=== PATIENT | female | born 1960 | race Caucasian/White ===

== ENCOUNTER 2017-04-30 09:37 | Emergency (ER) | payer MEDICAID ==
[~2017-04-30] VITALS: Ht 152.4 cm; Wt 65.0 kg
[~2017-04-30 09:37] MED LIST: ALPR1TAB2 PO; ATOR20TA9 PO; DOXE100C PO; NITR100C56 PO; PHEN100C PO
[2017-04-30] MEDS ORDERED: SODIUM CHLORIDE FLUSH 10ML SYR IVF ONE (11:00)
[2017-04-30] MEDS ORDERED: SODIUM CHLORIDE 0.9% 1,000ML IVBOLUS ONE (11:00)
[2017-04-30 11:01] LABS: HEMATOCRIT 47.2 % (34.6-47.8); HEMOGLOBIN 16.3 g/dL (11.7-16.4); WHITE BLOOD COUNT 9.3 x10^3/uL (3.4-10)
[2017-04-30 11:15] LABS: BLOOD UREA NITROGEN 9 mg/dL (7-18)
[2017-04-30 11:19] LABS: IS PT STATUS REG ER OR PRE ER? YES
[2017-04-30 13:16] VITALS: BP 116/69
== END 2017-04-30 13:39 | disposition home or self-care (01) ==
LOC: ED 12:36
DX: R07.89 Other chest pain (principal); K21.9 Gastro-esophageal reflux disease without esophagitis
CPT/HCPCS: 36415; 71010; 80048; 82040; 84484; 85025; 85610; 85730; 93005; 99285

== ENCOUNTER 2018-05-02 22:02 | Emergency (ER) | payer MEDICAID ==
[~2018-05-02] VITALS: Ht 152.4 cm; Wt 63.2 kg
[2018-05-02] MEDS ORDERED: LIDOCAINE-MPF 2%, 2ML ONE (22:25)
[2018-05-02] MEDS ORDERED: PROPOFOL 10 MG/ML, 20ML ONE (22:25)
[2018-05-02] MEDS ORDERED: PROPOFOL 10 MG/ML, 20ML IVPush ONE ×2 (22:30→23:30)
[2018-05-02 23:44] VITALS: BP 90/47
== END 2018-05-02 23:49 | disposition home or self-care (01) ==
LOC: ED 23:29
DX: N76.0 Acute vaginitis (principal); K21.9 Gastro-esophageal reflux disease without esophagitis; Z90.49 Acquired absence of other specified parts of digestive tract; Z88.6 Allergy status to analgesic agent; Z88.0 Allergy status to penicillin; Z88.5 Allergy status to narcotic agent; Z87.891 Personal history of nicotine dependence; Z90.710 Acquired absence of both cervix and uterus; Z79.899 Other long term (current) drug therapy
CPT/HCPCS: 56405

== ENCOUNTER 2018-10-26 16:40 | Inpatient (IN) | payer MEDICAID, OTHER ==
[~2018-10-26] VITALS: Ht 152.4 cm; Wt 68.6 kg
[~2018-10-26 16:40] MED LIST changes: +ATOR20TA37 PO; -ATOR20TA9 PO
--- NOTE | 2018-10-26 17:20 | NUR ---
PT REPORTING COELLO FOR 3 DAYS OFF AND ON. RIGHT THIGH PAIN AND LEG NUMBNESS. PT HYPERTENSIVE, DENIES HISTORY OF HTN. ALERT AND ORIENTED. NO FOCAL DEFICIT. ASSISTED INTO [facility] AND ASKED TO CHANGE INTO GOWN.
[2018-10-26 17:24] LABS: BASOPHILS # (AUTO) 0.09 x10^3/uL (0-0.1); BASOPHILS % (AUTO) 1 % (0-1); EOSINOPHILS # (AUTO) 0.23 x10^3/uL (0-0.4); EOSINOPHILS % (AUTO) 2 % (1-7); LYMPHOCYTES # (AUTO) 2.49 x10^3/uL (1-3.4); LYMPHOCYTES % (AUTO) 20 % (22-44); MD NO; MEAN CORPUSCULAR HEMOGLOBIN 34.4 pg (27.0-34.8); MEAN CORPUSCULAR HGB CONC 35.4 g/dL (32.4-35.8); MEAN CORPUSCULAR VOLUME 97.2 fL (80-100); MEAN PLATELET VOLUME 8.7 fL (7.4-10.4); MONOCYTES % (AUTO) 5 % (2-9); NEUTROPHILS # (AUTO) 9.22 x10^3/uL (1.8-6.8); NEUTROPHILS % (AUTO) 73 % (42-75); PLATELET COUNT 239 x10^3/uL (130-400)
[2018-10-26] MEDS ORDERED: LORA2TAB PO (17:28)
[2018-10-26 17:30] LABS: INTERNATIONAL NORMALIZED RATIO 0.95 (0.93-1.1)
[2018-10-26] MEDS ORDERED: SODIUM CHLORIDE 0.9% 1,000ML IVBOLUS ONE (18:30)
[2018-10-26] MEDS ORDERED: MORPHINE SULFATE 4 MG/ML, 1ML IVPush PRN (18:30)
[2018-10-26] MEDS ORDERED: ONDANSETRON 2MG/ML, 2ML ONE (18:30)
[2018-10-26] MEDS ORDERED: FENTANYL PF 100 MCG/2ML IVPush PRN (18:30)
[2018-10-26] MEDS ORDERED: ONDANSETRON 2MG/ML, 2ML IVPush ONE (18:30)
[2018-10-26] MEDS ORDERED: FENTANYL PF 100 MCG/2ML ONE (18:30)
--- NOTE | 2018-10-26 18:43 | NUR ---
20 G ESTABLISHED FOR CTA. MEDICATED PER ORDERS FOR COELLO. TO CT
[2018-10-26] MEDS ORDERED: OMNIPAQUE 350 MG/ML, 100ML BOTTLE ONE (19:08)
--- NOTE | 2018-10-26 19:31 | NUR ---
PAIN IMPROVED SINCE MEDICATED, 01/11. PAIN BEHIND RIGHT EYE. FLUIDS INFUSING. AWARE OF INTENT TO ADMIT
--- NOTE | 2018-10-26 20:58 | NUR ---
REPORT TO EVANGELIST ESCALANTE
--- NOTE | 2018-10-26 21:36 | NUR ---
RADHIKA ROSS AT BEDSIDE FOR ADMIT EVAL.
[2018-10-26] MEDS ORDERED: POLYETHYLENE GLYCOL 17 GM PACKET PO PRN (22:00)
[2018-10-26] MEDS ORDERED: ONDANSETRON 2MG/ML, 2ML IVPush PRN (22:00)
[2018-10-26] MEDS ORDERED: SENNA/DOCUSATE TABLET PO PRN (22:00)
[2018-10-26] MEDS ORDERED: LABETALOL 20 MG/4 ML IV PRN (22:00)
[2018-10-26] MEDS ORDERED: BISACODYL 10 MG SUPP PR PRN (22:00)
[2018-10-26] MEDS ORDERED: ENALAPRILAT 1.25 MG/ML, 2ML IV PRN (22:00)
[2018-10-26] MEDS ORDERED: DOCUSATE 100 MG CAPSULE PO PRN (22:00)
[2018-10-26] MEDS ORDERED: NICOTINE 21 MG/24 HR PATCH.TD24 TD ONE (22:00)
[2018-10-26] MEDS ORDERED: ONDANSETRON 4 MG TABLET PO PRN (22:00)
[2018-10-26] MEDS ORDERED: NICOTINE 21 MG/24 HR PATCH.TD24 ONE (22:31)
[2018-10-26 22:34] LABS: ALANINE AMINOTRANSFERASE 24 U/L (12-78); ALBUMIN 3.7 g/dL (3.4-5.0); ANION GAP 7 mmol/L (5-15); CHLORIDE 115 mmol/L (98-107)
[2018-10-26 22:36] LABS: ALKALINE PHOSPHATASE 76 U/L (45-117); CREATININE 0.86 mg/dL (0.55-1.02); TOTAL PROTEIN 6.5 g/dL (6.4-8.2)
[2018-10-26] MEDS ORDERED: DOXEPIN 100 MG CAPSULE PO PRN (23:00)
[2018-10-26 23:25] VITALS: BP 126/71
[2018-10-27] VITALS (8 sets, daily range): BP systolic 92–111; BP diastolic 60–75
[2018-10-27] MEDS: ACETAMINOPHEN 325 MG TABLET PO PRN ×2 (04:02→10:17)
[2018-10-27 04:35] LABS: MICROSCOPIC NOT IND
[2018-10-27 04:38] LABS: CULTURE INDICATED? NO
[2018-10-27] MEDS ORDERED: SODIUM CHLORIDE 0.9%, 500ML IVBOLUS ONE (05:30)
[2018-10-27] MEDS: LACTULOSE 10 GM/15 ML UDC PO SCH ×2 (08:09→21:00)
[2018-10-27 09:16] LABS: BASOPHILS # (AUTO) 0.05 x10^3/uL (0-0.1); BASOPHILS % (AUTO) 1 % (0-1); EOSINOPHILS # (AUTO) 0.24 x10^3/uL (0-0.4); EOSINOPHILS % (AUTO) 4 % (1-7); LYMPHOCYTES # (AUTO) 1.85 x10^3/uL (1-3.4); LYMPHOCYTES % (AUTO) 31 % (22-44); MD NO; MEAN CORPUSCULAR HEMOGLOBIN 33.6 pg (27.0-34.8); MEAN CORPUSCULAR HGB CONC 34.2 g/dL (32.4-35.8); MEAN CORPUSCULAR VOLUME 98.3 fL (80-100); MEAN PLATELET VOLUME 8.7 fL (7.4-10.4); MONOCYTES # (AUTO) 0.32 x10^3/uL (0.2-0.8); MONOCYTES % (AUTO) 5 % (2-9); NEUTROPHILS # (AUTO) 3.54 x10^3/uL (1.8-6.8); NEUTROPHILS % (AUTO) 59 % (42-75); PLATELET COUNT 208 x10^3/uL (130-400); RED BLOOD COUNT 4.61 x10^6/uL (3.82-5.3); RED CELL DISTRIBUTION WIDTH 13.1 % (9.6-15.2)
[2018-10-27 09:20] LABS: CHOL/HDL RATIO 3.7; LDL/HDL RATIO 2.3 (0.5-3.0)
[2018-10-27 13:12] LABS: AMPHETAMINE SCREEN, URINE Negative (Negative); BARBITURATE SCREEN, URINE Negative (Negative); BENZODIAZEPINE SCREEN, URINE Negative (Negative); CANNABINOID SCREEN, URINE Negative (Negative); COCAINE SCREEN, URINE Negative (Negative); METHADONE SCREEN, URINE Negative (Negative); OPIATE SCREEN, URINE Negative (Negative)
[2018-10-27] MEDS ORDERED: BUDESONIDE 0.5 MG/2 ML INHA INH SCH (21:00)
[2018-10-28 00:54] VITALS: BP 107/74
[2018-10-28 04:07] VITALS: BP 108/77
[2018-10-28 07:25] LABS: BASOPHILS # (AUTO) 0.07 x10^3/uL (0-0.1); BASOPHILS % (AUTO) 1 % (0-1); EOSINOPHILS # (AUTO) 0.24 x10^3/uL (0-0.4); EOSINOPHILS % (AUTO) 4 % (1-7); LYMPHOCYTES # (AUTO) 1.93 x10^3/uL (1-3.4); LYMPHOCYTES % (AUTO) 36 % (22-44); MD NO; MEAN CORPUSCULAR HGB CONC 34.6 g/dL (32.4-35.8); MEAN CORPUSCULAR VOLUME 98.3 fL (80-100); MONOCYTES % (AUTO) 6 % (2-9); NEUTROPHILS # (AUTO) 2.84 x10^3/uL (1.8-6.8); NEUTROPHILS % (AUTO) 53 % (42-75); PLATELET COUNT 199 x10^3/uL (130-400); RED BLOOD COUNT 4.75 x10^6/uL (3.82-5.3); RED CELL DISTRIBUTION WIDTH 13.3 % (9.6-15.2)
[2018-10-28 07:26] VITALS: BP 112/79
[2018-10-28 07:34] LABS: ANION GAP 7 mmol/L (5-15); CHLORIDE 112 mmol/L (98-107)
[2018-10-28 07:36] LABS: CREATININE 0.86 mg/dL (0.55-1.02)
[2018-10-28] MEDS: LACTULOSE 10 GM/15 ML UDC PO SCH (08:41)
[2018-10-28] MEDS ORDERED: ATORVASTATIN 80 MG TABLET PO SCH (09:00)
[2018-10-28] MEDS ORDERED: CLOPIDOGREL 75 MG TABLET PO SCH (09:00)
[2018-10-28] MEDS ORDERED: CLOP75TA PO (09:08)
[2018-10-28] MEDS ORDERED: ATOR-2 PO (09:08)
[2018-10-28 12:03] VITALS: BP 100/67
[2018-10-28] MEDS ORDERED: BUDE10.2 PO (12:15)
[2018-10-28 16:18] VITALS: BP 104/69
== END 2018-10-28 18:40 | disposition home or self-care (01) | DRG 103 ==
LOC: ED 19:42 → EDIP 19:47 → ED 20:05 → 4EST 23:36
PROVIDERS: ADMIT Internal Medicine; ATTEND Internal Medicine
DX: R51 Headache (principal); G81.91 Hemiplegia, unspecified affecting right dominant side; H53.129 Transient visual loss, unspecified eye; D72.829 Elevated white blood cell count, unspecified; F17.200 Nicotine dependence, unspecified, uncomplicated; F32.9 Major depressive disorder, single episode, unspecified; G47.00 Insomnia, unspecified; J32.9 Chronic sinusitis, unspecified; I10 Essential (primary) hypertension; R00.0 Tachycardia, unspecified; J44.9 Chronic obstructive pulmonary disease, unspecified; K44.9 Diaphragmatic hernia without obstruction or gangrene; R29.810 Facial weakness; Z88.6 Allergy status to analgesic agent; Z88.0 Allergy status to penicillin
CPT/HCPCS: 36415; 70450; 70496; 70498; 70551; 76536; 80047; 80048; 80053; 80061; 80307; 81003; 85025; 85610; 85730; 93005; 93306; 93931; G0378; J2405; J3010; Q9967; J7040

== ENCOUNTER 2019-02-03 09:00 | Emergency (ER) | payer MEDICAID ==
[~2019-02-03] VITALS: Ht 152.4 cm; Wt 61.0 kg
[~2019-02-03 09:00] MED LIST changes: +ATOR-2 PO; +BUDE10.2 PO; +CLOP75TA PO; +LORA2TAB PO
[2019-02-03 09:13] VITALS: BP 133/79
[2019-02-03] MEDS ORDERED: PRAZ1CAP2 PO (09:23)
--- NOTE | 2019-02-03 09:30 | NUR ---
valerie. report received from [facility]. 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 hx of schizophrenia. pt took 4 pills of prazosin. no hi. all belongings put into one bag. room secure. sitter monitoring from [facility] for safety.
--- NOTE | 2019-02-03 09:32 | NUR ---
PT AMB TO BR AND BACK TO ROOM WITH STEADY GAIT. UA SENT.
[2019-02-03 09:39] LABS: BASOPHILS # (AUTO) 0.07 x10^3/uL (0-0.1); BASOPHILS % (AUTO) 1 % (0-1); EOSINOPHILS # (AUTO) 0.12 x10^3/uL (0-0.4); EOSINOPHILS % (AUTO) 1 % (1-7); LYMPHOCYTES # (AUTO) 1.32 x10^3/uL (1-3.4); LYMPHOCYTES % (AUTO) 15 % (22-44); MD NO; MEAN CORPUSCULAR HEMOGLOBIN 34.4 pg (27.0-34.8); MEAN CORPUSCULAR HGB CONC 34.5 g/dL (32.4-35.8); MEAN CORPUSCULAR VOLUME 99.8 fL (80-100); MEAN PLATELET VOLUME 8.9 fL (7.4-10.4); MONOCYTES # (AUTO) 0.46 x10^3/uL (0.2-0.8); MONOCYTES % (AUTO) 5 % (2-9); NEUTROPHILS # (AUTO) 6.81 x10^3/uL (1.8-6.8); NEUTROPHILS % (AUTO) 78 % (42-75); PLATELET COUNT 209 x10^3/uL (130-400); RED BLOOD COUNT 4.95 x10^6/uL (3.82-5.3); RED CELL DISTRIBUTION WIDTH 13.1 % (9.6-15.2)
--- NOTE | 2019-02-03 09:43 | NUR ---
pt's family memeber's contact info Andrew Carola (son in law) [phone] Lisa Swapna (daughter) [phone]
[2019-02-03 09:56] LABS: ALANINE AMINOTRANSFERASE 39 U/L (12-78); ALBUMIN 4.3 g/dL (3.4-5.0); ANION GAP 7 mmol/L (5-15); CHLORIDE 111 mmol/L (98-107)
[2019-02-03 09:58] LABS: AMPHETAMINE SCREEN, URINE Negative (Negative); BARBITURATE SCREEN, URINE Negative (Negative); BENZODIAZEPINE SCREEN, URINE Negative (Negative); CANNABINOID SCREEN, URINE Negative (Negative); COCAINE SCREEN, URINE Negative (Negative); METHADONE SCREEN, URINE Negative (Negative); OPIATE SCREEN, URINE Negative (Negative)
[2019-02-03 09:59] LABS: ALKALINE PHOSPHATASE 104 U/L (45-117); BILIRUBIN,TOTAL 1.3 mg/dL (0.2-1.0); CREATININE 1.06 mg/dL (0.55-1.02); TOTAL PROTEIN 7.7 g/dL (6.4-8.2)
--- NOTE | 2019-02-03 11:01 | NUR ---
PROVIDED COFFE AND WATER AT THIS TIME.
[2019-02-03] MEDS ORDERED: QUETIAPINE 100MG TABLET PO STA (13:47)
[2019-02-03] MEDS ORDERED: QUETIAPINE 100MG TABLET ONE (13:55)
--- NOTE | 2019-02-03 14:03 | NUR ---
pt medicated per emar. pt tolerated well.
--- NOTE | 2019-02-03 14:32 | NUR ---
DIET TRAY ORDERED NOW, BECAUSE PT IS WAITING FOR ROOM UNTILL 4:30 TODAY.
--- NOTE | 2019-02-03 14:47 | NUR ---
REPORT FROM AVA FAJARDO. ROOM SECURE, SITTER PRESENT. NO PERSONAL BELONGINGS NOTED IN ROOM. TELE PSYCH MONITOR ON AND AT BEDSIDE FOR EVAL.
--- NOTE | 2019-02-03 14:55 | NUR ---
REPORT GIVEN TO FIOR ESCALANTE.
--- NOTE | 2019-02-03 15:22 | NUR ---
SI APPROPRIATE MEAL TRAY PROVIDED. PT CALM AND COOPERATIVE. AWAITING TELEPSYCH EVAL.
== END 2019-02-03 17:07 ==
LOC: ED 10:26 → EDIP 13:46 → UNDOADMIN 13:46 → UNDODISIN 23:08
DX: R45.851 Suicidal ideations (principal); K21.9 Gastro-esophageal reflux disease without esophagitis; Z90.49 Acquired absence of other specified parts of digestive tract; Z90.710 Acquired absence of both cervix and uterus; Y04.8XXA Assault by other bodily force, initial encounter
CPT/HCPCS: 36415; 80053; 80307; 82140; 85025

== ENCOUNTER 2019-02-03 16:02 | Inpatient (IN) | payer MEDICAID ==
[~2019-02-03] VITALS: Ht 152.4 cm; Wt 63.9 kg
[~2019-02-03 16:02] MED LIST changes: +PRAZ1CAP2 PO
[2019-02-03] MEDS ORDERED: ACETAMINOPHEN 325 MG TABLET PO PRN (17:00)
[2019-02-03] MEDS ORDERED: ONDANSETRON ODT 4 MG PO PRN (17:00)
[2019-02-03] MEDS ORDERED: DOCUSATE 100 MG CAPSULE PO PRN (17:00)
[2019-02-03 17:15] VITALS: BP 105/75
[2019-02-03 17:57] VITALS: BP 105/75
[2019-02-03 19:28] VITALS: BP 93/60
[2019-02-03] MEDS ORDERED: DOXEPIN 25 MG CAPSULE PO SCH (21:00)
[2019-02-03] MEDS: NICOTINE 21 MG/24 HR PATCH.TD24 TD SCH (21:45)
[2019-02-04 06:00] LABS: HCT (SEDRATE) 51.8 % (34.6-47.8)
[2019-02-04 06:27] LABS: MICROSCOPIC AUTO
[2019-02-04 06:28] LABS: CULTURE INDICATED? YES
[2019-02-04 06:58] LABS: CHOL/HDL RATIO 3.5; FREE T4 (FREE THYROXINE) 1.07 ng/dL (0.76-1.46); LDL/HDL RATIO 2.2 (0.5-3.0); THYROID STIMULATING HORMONE 2.76 mIU/L (0.358-3.740)
[2019-02-04 07:42] VITALS: BP 96/67
[2019-02-04] MEDS ORDERED: NICOTINE 21 MG/24 HR PATCH.TD24 TD SCH (09:00)
[2019-02-04] MEDS: TEMPLATE NON-FORMULARY MED. (Budesonide/Formoterol Fumarate (Symbicort 160-4.5 Mcg Inhaler PO SCH ×2 (10:30→21:00)
[2019-02-04] MEDS: CEFDINIR 300 MG CAPSULE PO SCH ×2 (11:14→21:59)
[2019-02-04] MEDS: DOCUSATE 100 MG CAPSULE PO SCH ×2 (11:15→21:59)
[2019-02-04] MEDS: hydrOXyzine 50MG TABLET PO PRN (16:46)
[2019-02-04 19:38] VITALS: BP 97/63
[2019-02-04] MEDS: QUETIAPINE 100MG TABLET PO SCH (21:59)
[2019-02-04] MEDS: NICOTINE 21 MG/24 HR PATCH.TD24 TD SCH (22:01)
[2019-02-05 07:18] VITALS: BP 121/75
[2019-02-05] MEDS: DOCUSATE 100 MG CAPSULE PO SCH ×2 (08:05→20:35)
[2019-02-05] MEDS: CEFDINIR 300 MG CAPSULE PO SCH ×2 (08:05→20:35)
[2019-02-05] MEDS: POLYETHYLENE GLYCOL 17 GM PACKET PO PRN ×2 (08:05→20:37)
[2019-02-05] MEDS: TEMPLATE NON-FORMULARY MED. (Budesonide/Formoterol Fumarate (Symbicort 160-4.5 Mcg Inhaler PO SCH ×2 (08:07→20:38)
[2019-02-05] MEDS: hydrOXyzine 50MG TABLET PO PRN ×2 (16:41→21:50)
[2019-02-05 19:39] VITALS: BP 106/70
[2019-02-05] MEDS: QUETIAPINE 100MG TABLET PO SCH (20:35)
[2019-02-05] MEDS: NICOTINE 21 MG/24 HR PATCH.TD24 TD SCH (20:44)
[2019-02-06 07:27] VITALS: BP 104/60
[2019-02-06] MEDS: TEMPLATE NON-FORMULARY MED. (Budesonide/Formoterol Fumarate (Symbicort 160-4.5 Mcg Inhaler PO SCH ×2 (09:00→20:29)
[2019-02-06] MEDS: DOCUSATE 100 MG CAPSULE PO SCH ×2 (09:19→20:19)
[2019-02-06] MEDS: CEFDINIR 300 MG CAPSULE PO SCH ×2 (09:19→20:19)
[2019-02-06 19:41] VITALS: BP 90/61
[2019-02-06] MEDS: QUETIAPINE 100MG TABLET PO SCH (20:19)
[2019-02-06] MEDS: NICOTINE 21 MG/24 HR PATCH.TD24 TD SCH (20:20)
[2019-02-06] MEDS: POLYETHYLENE GLYCOL 17 GM PACKET PO PRN (20:28)
[2019-02-06] MEDS: hydrOXyzine 50MG TABLET PO PRN (20:28)
[2019-02-07 07:00] VITALS: BP 115/77
[2019-02-07] MEDS: CEFDINIR 300 MG CAPSULE PO SCH ×2 (09:08→20:54)
[2019-02-07] MEDS: DOCUSATE 100 MG CAPSULE PO SCH ×2 (09:08→20:48)
[2019-02-07] MEDS: TEMPLATE NON-FORMULARY MED. (Budesonide/Formoterol Fumarate (Symbicort 160-4.5 Mcg Inhaler PO SCH ×2 (09:10→20:54)
[2019-02-07] MEDS: BISACODYL 10 MG SUPP PR PRN (16:32)
[2019-02-07 19:42] VITALS: BP 101/68
[2019-02-07] MEDS: NICOTINE 21 MG/24 HR PATCH.TD24 TD SCH (20:33)
[2019-02-07] MEDS: QUETIAPINE 100MG TABLET PO SCH ×2 (20:49→20:55)
[2019-02-08 07:23] VITALS: BP 101/74
[2019-02-08] MEDS: TEMPLATE NON-FORMULARY MED. (Budesonide/Formoterol Fumarate (Symbicort 160-4.5 Mcg Inhaler PO SCH ×2 (09:00→21:00)
[2019-02-08] MEDS: CEFDINIR 300 MG CAPSULE PO SCH ×2 (09:38→20:47)
[2019-02-08] MEDS: DOCUSATE 100 MG CAPSULE PO SCH ×2 (09:38→20:47)
[2019-02-08] MEDS: NICOTINE 21 MG/24 HR PATCH.TD24 TD SCH (09:42)
[2019-02-08] MEDS: hydrOXyzine 50MG TABLET PO PRN (13:50)
[2019-02-08 20:10] VITALS: BP 115/78
[2019-02-08] MEDS: LORazepam 0.5MG TABLET PO PRN (20:47)
[2019-02-08] MEDS: QUETIAPINE 100MG TABLET PO SCH (20:47)
[2019-02-09 07:25] VITALS: BP 109/67
[2019-02-09] MEDS: CEFDINIR 300 MG CAPSULE PO SCH (08:42)
[2019-02-09] MEDS: DOCUSATE 100 MG CAPSULE PO SCH ×2 (08:42→20:46)
[2019-02-09] MEDS: LORazepam 0.5MG TABLET PO PRN ×2 (08:42→20:46)
[2019-02-09] MEDS: NICOTINE 21 MG/24 HR PATCH.TD24 TD SCH (08:44)
[2019-02-09] MEDS: TEMPLATE NON-FORMULARY MED. (Budesonide/Formoterol Fumarate (Symbicort 160-4.5 Mcg Inhaler PO SCH ×2 (08:45→21:00)
[2019-02-09] MEDS: BISACODYL 10 MG SUPP PR PRN (08:54)
[2019-02-09] MEDS: hydrOXyzine 50MG TABLET PO PRN (13:32)
[2019-02-09 20:05] VITALS: BP 105/70
[2019-02-09] MEDS: QUETIAPINE 100MG TABLET PO SCH (20:47)
[2019-02-10 07:33] VITALS: BP 105/74
[2019-02-10] MEDS: NICOTINE 21 MG/24 HR PATCH.TD24 TD SCH (08:42)
[2019-02-10] MEDS: DOCUSATE 100 MG CAPSULE PO SCH (08:42)
[2019-02-10] MEDS: LORazepam 0.5MG TABLET PO PRN (08:42)
[2019-02-10] MEDS: TEMPLATE NON-FORMULARY MED. (Budesonide/Formoterol Fumarate (Symbicort 160-4.5 Mcg Inhaler PO SCH (08:42)
[2019-02-10] MEDS ORDERED: HYDR50TA13 PO (18:00)
[2019-02-10] MEDS ORDERED: QUET100T PO (18:00)
[2019-02-10] MEDS ORDERED: NICO-487 TD (18:00)
[2019-02-10] MEDS ORDERED: DOCU-131 PO (18:00)
== END 2019-02-10 18:24 | disposition home or self-care (01) | DRG 885 ==
LOC: 3E 17:16
PROVIDERS: ADMIT Psychiatry & Neurology Psychosomatic Medicine; ATTEND Psychiatry & Neurology Psychosomatic Medicine
DX: F31.30 Bipolar disorder, current episode depressed, mild or moderate severity, unspecified (principal); R45.851 Suicidal ideations; N39.0 Urinary tract infection, site not specified; F60.3 Borderline personality disorder; F17.210 Nicotine dependence, cigarettes, uncomplicated; K59.09 Other constipation; Z66 Do not resuscitate; J44.9 Chronic obstructive pulmonary disease, unspecified; G47.00 Insomnia, unspecified; F43.10 Post-traumatic stress disorder, unspecified; E78.5 Hyperlipidemia, unspecified; Z90.710 Acquired absence of both cervix and uterus; Z82.49 Family history of ischemic heart disease and other diseases of the circulatory system; Z80.0 Family history of malignant neoplasm of digestive organs; Z79.899 Other long term (current) drug therapy; Z88.0 Allergy status to penicillin; Z88.6 Allergy status to analgesic agent; Z88.5 Allergy status to narcotic agent; Z90.49 Acquired absence of other specified parts of digestive tract
CPT/HCPCS: 36415; 71045; 80061; 81001; 82140; 82607; 84439; 84443; 85651; 86592; 87077; 87086; 87186; 93005; Q0162